=== PATIENT | male | born 1985 | race Caucasian/White ===

== ENCOUNTER 2016-10-08 07:23 | Inpatient (IN) | payer BC ==
[2016-10-08] VITALS (20 sets, daily range): BP systolic 115–178; BP diastolic 57–81; PULSE 59–87; RESP 14–36; Ht 188 cm; Wt 85.0 kg
[~2016-10-08] VITALS: Ht 188 cm; Wt 85.0 kg
[2016-10-08] MEDS ORDERED: MORP15TA92 PO (08:01)
[2016-10-08] MEDS ORDERED: GABA300C16 PO (08:01)
[2016-10-08] MEDS ORDERED: ACET-141 PO (08:02)
[2016-10-08] MEDS ORDERED: OXYC15TA PO (08:04)
[2016-10-08] MEDS ORDERED: FENTAnyl 50 MCG/ML VIAL ONE ×2 (08:08→15:35)
[2016-10-08] MEDS ORDERED: MIDAZOLAM 1 MG/ML 2 ML INJ ONE (08:08)
[2016-10-08] MEDS ORDERED: LIDOCAINE 2% (SDV) 5 ML INJ ONE (08:08)
[2016-10-08] MEDS ORDERED: SUCCINYLCHOLINE CHLORIDE 100 MG/5 ML SYG IV ONE (08:09)
[2016-10-08] MEDS ORDERED: PROPOFOL 20 ML ONE (08:09)
[2016-10-08] MEDS ORDERED: ROPIVACAINE 0.5 % 30 ML VIAL ONE (08:18)
[2016-10-08] MEDS ORDERED: POLYMYXIN/BACITRACIN 1L IRRIG ONE (09:19)
[2016-10-08] MEDS ORDERED: POVIDONE IODINE 10% 28.4 GM OINT ONE (09:19)
[2016-10-08] MEDS ORDERED: BUPIVACAINE 0.5% (SDV) 30 ML INJ ONE (09:19)
--- NOTE | 2016-10-08 09:19 | OPPN ---
Date/Time of Note Date/Time of Note DATE: 10/08/16 TIME: 09:17 Anesthesia Eval and Record Evaluation Age 31 Sex male NPO: 8 hrs Preoperative diagnosis L ankle fx Planned procedure L ankle OPA, ORIF Surgery & Anesthesia Issues No known issue Meds Anticoagulation: No Beta Ludivina within 24 hr: No Reason Beta Ludivina not given: Pt. not on B-Ludivina Reported Medications Oxycodone Hcl* (IR) (Oxycodone Hcl*) 15 Mg Tablet, 20 MG PO Q6 Y for PAIN, TAB 10/08/16 Acetaminophen* (Acetaminophen*) 500 MG Extra Strength Tablet, 500 MG PO Q6 Y for PAIN, TAB 10/08/16 Gabapentin* (Gabapentin*) 300 Mg Capsule, 300 MG PO Q8, #90 CAP 10/08/16 Morphine Sulfate* (Ms Contin*) 15 Mg Tablet.sa, 15 MG PO Q8 Y for PAIN, TAB.SA 10/08/16 Allergies Coded Allergies: No Known Allergy (Unverified , 10/08/16) Labs/Studies Reviewed by anesthesiologist Test: N/A Pre-procedure Exam Last vitals Vital Signs Date Time Temp Pulse Resp B/P Pulse Ox O2 Delivery O2 Flow Rate FiO2 10/08/16 09:03 98.0 59 16 132/81 97 Airway: Adequate mouth opening, Adequate thyromental dist Mallampati Score: Mallampati II Teeth: Normal Lung: Normal Heart: Normal ASA Physical Status ASA physical status: 2 (smoker) Planned Anesthetic General/MAC: ETT Nerve block: Sciatic (left), Other (L adductor canal block, saphenous nerve block) Planned Pain Management Single shot nerve block Pre-operative Attestations Prior to commencing anesthesia and surgery, the patient was re-evaluated, there was verification of: *The patient's identity *The results of appropriate recent lab work and preoperative vital signs *The above evaluation not changing prior to induction *Anesthetic plan, risk benefits, alternative and complications discussed with patient/family; questions answered; patient/family understands, accepts and wishes to proceed. SUE SELLERS MD Oct 08, 2016 09:19
--- NOTE | 2016-10-08 09:23 | RADRPT ---
PROCEDURE: XR Chest. CLINICAL INDICATION: Preoperative, ankle fracture TECHNIQUE: Single frontal view of the chest was obtained COMPARISON: None FINDINGS: The heart and mediastinum are within normal limits. The lungs are clear. There is no pleural effusion or pneumothorax. RPTAT: AA IMPRESSION: No acute disease. .Sy Barahona MD, MD Date Time Electronically viewed and signed by .Sy Barahona MD, on 10/08/2016 09:23 .S/
--- NOTE | 2016-10-08 10:20 | HPN ---
Date/Time of Note Date/Time of Note DATE: 10/08/16 TIME: 10:20 Interval H&P Admission Note Pt. seen H&P reviewed: No system changes KLAUS DUNNE MD Oct 08, 2016 10:20
[2016-10-08] MEDS ORDERED: hydrALAzine 20 MG INJ IV PRN (10:30)
[2016-10-08] MEDS ORDERED: LABETALOL HCL 20MG INJ IV PRN (10:30)
[2016-10-08] MEDS ORDERED: OXYCODONE/ACETAMINOPHEN (5/325) TAB PO PRN ×4 (10:30→16:00)
[2016-10-08] MEDS ORDERED: DIPHENHYDRAMINE 50 MG INJ IV PRN ×2 (10:30→16:00)
[2016-10-08] MEDS ORDERED: ONDANSETRON 4 MG INJ IV PRN ×3 (10:30→16:00)
[2016-10-08] MEDS ORDERED: ALBUTEROL 0.083% (NEB) 2.5 MG/3 ML AMP HHN PRN (10:30)
[2016-10-08] MEDS ORDERED: PROCHLORPERAZINE 10 MG INJ IV PRN (10:30)
[2016-10-08] MEDS ORDERED: HYDROmorphONE (0.2 MG/ML) 10ML SYG IV PRN ×2 (10:30)
[2016-10-08] MEDS ORDERED: FENTAnyl 50 MCG/ML VIAL IV PRN (10:30)
[2016-10-08] MEDS ORDERED: MEPERIDINE 25 MG INJ IV PRN (10:30)
[2016-10-08] MEDS ORDERED: IPRATROPIUM (NEB) 0.5 MG/2.5 ML AMP HHN PRN (10:30)
[2016-10-08] MEDS ORDERED: DIPHENHYDRAMINE 25 MG CAP PO PRN (10:30)
[2016-10-08] MEDS ORDERED: CEFAZOLIN 1 GM INJ IV SCH (10:30)
[2016-10-08] MEDS ORDERED: KETOROLAC 30 MG INJ IV ONE (10:30)
[2016-10-08] MEDS ORDERED: DEXAMETHASONE 4 MG/ML 1 ML INJ ONE (10:45)
[2016-10-08] MEDS ORDERED: ROCURONIUM 50 MG INJ ONE (10:45)
[2016-10-08] MEDS ORDERED: METOCLOPRAMIDE 10 MG INJ ONE (10:45)
[2016-10-08] MEDS ORDERED: CEFAZOLIN 1 GM INJ ONE ×2 (10:45→14:10)
[2016-10-08] MEDS ORDERED: ONDANSETRON 4 MG INJ ONE ×2 (10:45→15:05)
[2016-10-08] MEDS ORDERED: KETAMINE 500 MG INJ ONE (12:59)
[2016-10-08] MEDS ORDERED: HYDROmorphONE 2 MG/ML SYG ONE (13:11)
[2016-10-08] MEDS ORDERED: BACITRACIN/POLYMYXIN 28.35 GM OINT TOP ONE (15:17)
[2016-10-08] MEDS ORDERED: ACETAMINOPHEN 1000MG/100ML IV 100 ML ONE (15:32)
--- NOTE | 2016-10-08 15:40 | RADRPT ---
PROCEDURE: Intraoperative imaging of the left ankle with fluoroscopy. CLINICAL INDICATION: Left ankle pain. Intraoperative. TECHNIQUE: 18 images of the left ankle were obtained in the operating room with an image intensifi er. No radiologist was in attendance. All 156 seconds of fluoroscopy time was used. COMPARISON: No prior study is available for comparison. FINDINGS: Images demonstrate open reduction and internal fixation of fracture of the medial malleolus with ext ensive hardware. IMPRESSION: 1. Intraoperative imaging of the left ankle. RPTAT: QQ .Arnie Byers MD, MD Date Time Electronically viewed and signed by .Arnie Byers MD, on 10/08/2016 15:40 .R/
[2016-10-08] MEDS ORDERED: LORAZEPAM 2 MG INJ ONE (15:49)
--- NOTE | 2016-10-08 15:59 | OPPN ---
Date/Time of Note Date/Time of Note DATE: 10/08/16 TIME: 15:58 Post-Anesthesia Notes Post-Anesthesia Note Last documented vital signs Vital Signs Date Time Temp Pulse Resp B/P Pulse Ox O2 Delivery O2 Flow Rate FiO2 10/08/16 15:54 98.0 10/08/16 15:48 86 36 169/73 100 Mask 8.0 Activity: WNL Respiratory function: WNL Cardiovascular function: WNL Mental status: Baseline Pain reasonably controlled: Yes Hydration appropriate: Yes Nausea/Vomiting absent: Yes SUE SELLERS MD Oct 08, 2016 15:59
[2016-10-08] MEDS ORDERED: HYDROmorphONE 1 MG/ML SYG IV PRN ×2 (16:00)
[2016-10-08] MEDS ORDERED: ZOLPIDEM 5 MG TAB PO PRN (16:00)
[2016-10-08] MEDS ORDERED: NALOXONE (0.4 MG/ML) INJ IV PRN (16:00)
[2016-10-08] MEDS ORDERED: LORAZEPAM 2 MG INJ IV PRN (16:00)
[2016-10-08] MEDS ORDERED: HYDROmorphONE 0.2 MG/ML PCA IV SCH (16:00)
[2016-10-08] MEDS ORDERED: TRIMETHOBENZAMIDE 100 MG/ML VIAL IM PRN (16:00)
[2016-10-08] MEDS ORDERED: KETOROLAC 30 MG INJ IV PRN (16:00)
[2016-10-08] MEDS ORDERED: ACETAMINOPHEN 500 MG TAB PO PRN (16:00)
[2016-10-08] MEDS ORDERED: HYDROmorphONE 0.2 MG/ML PCA ONE (16:13)
[2016-10-08] MEDS: CEFAZOLIN 2 GM/50 ML (PMX) 50 ML IVPB SCH (17:57)
--- NOTE | 2016-10-08 18:45 | OPR ---
Date/Time of Note Date/Time of Note DATE: 10/08/16 TIME: 18:40 Operative Report Procedure Date: Oct 08, 2016 Preoperative Diagnosis Left ankle pilon fracture of the tibia and midshaft fibula Postoperative Diagnosis 1. Left ankle distal tibial pilon fracture and fibula fracture 2. left ankle medial talar dome osteochondral lesion measuring approximately 2 x 2 mm 3. left ankle loose body 4. left ankle acute rupture of the deltoid ligament 5. left ankle dislocation and disruption of the ankle syndesmosis Operation Performed 1.left ankle arthroscopy with extensive debridement 2.left ankle arthroscopy with loose body removal 3.left ankle arthroscopy with microfracture of medial talar dome osteochondral lesion 4.left ankle distal tibial pilon fracture open reduction internal fixation with open reduction internal fixation of midshaft fibula fracture 5.left ankle, repair of deltoid ligament rupture Surgeon: KLAUS DUNNE MD podiatry assistant: ANN MARIE DENNIS Anesthesia: general, other (Regional block anesthesia with popliteal and saphenous block) Anesthesiologist: SUE SELLERS MD Tourniquet Time: 140 min at 250 mmHg Estimated Blood Loss: 50 - 100 ml's Complications: None Pt Condition Post Procedure: stable Disposition: PACU KLAUS DUNNE MD Oct 08, 2016 18:45
[2016-10-08] MEDS ORDERED: oxyCODONE 5 MG TAB PO PRN (19:00)
--- NOTE | 2016-10-08 21:01 | CONS ---
DATE OF ADMISSION: 10/08/2016 DATE OF CONSULTATION: 10/08/2016 TYPE OF CONSULTATION: Pain management. REFERRING PHYSICIAN: Dr. Moody Monsivais History is taken from the patient's medical records as well as speaking to family members at the bed side. The patient is postop and still very lethargic. HISTORY OF PRESENT ILLNESS: This is a 31-year-old gentleman who sustained a left ankle pilon fractu re of the tibia and midshaft of the fibula secondary to falling, injuring himself 2 weeks ago playin g soccer. The patient was transported to [facility] via paramedics, was hospitalized there for approximately 1 week. At the time, he was worked up for any other serious acute injuries accor ding to family members. There were none found, and in questioning the patient's significant other, girlfriend states that there was no loss of consciousness, nausea, vomiting, dizziness, diplopia, di sorientation. She gave me a clear history that there were no other neurological problems or any oth er fractures that were noted during a thorough workup at [facility]. The patient was start ed off with combination of MS Contin 15 mg q.8 hours and oxycodone 20 mg q.6 hours as needed, and at [facility], he was receiving p.r.n. doses also of Dilaudid push and gabapentin. Apparentl y he was able to discontinue the use of the oxycodone as an outpatient when he was discharged from [facility] and was only taking morphine and gabapentin. A more thorough, detailed history o f his current pain level as well as the character of the pain, location, with or without radiation, will be done when patient is more awake. He is currently on a LOSS CONTROL REPRESENTATIVE. Dilaudid at 0.2 mg, lockout ashlie ry 10 minutes, was begun by Dr. Zeynep Toledo postoperatively, and he seems to be well controlled. Also has had 2 blocks intraoperatively in addition. MEDICATIONS: Please refer to reconciliation sheets. ALLERGIES: NO KNOWN DRUG ALLERGIES. MAJOR MEDICAL PROBLEMS IN THE PAST: According to family members, none. SOCIAL HISTORY: Was a heavy smoker, at one time a pack per day, stopped approximately 1 week ago an d currently uses nicotine patch. Social drinker occasionally on weekends. No other recreational dr ug use. FAMILY HISTORY: Noncontributory towards hospitalization according [facility] at [facility]. REVIEW OF SYSTEMS: Cannot be obtained. The patient is lethargic and waxes and wanes insofar as his mental status. PHYSICAL EXAMINATION: VITAL SIGNS: Blood pressure 151/63, pulse of 84 and regular, respirations of 18, temperature 98 deg carmelina, 98% saturation on 2 L FIO2. HEENT: He is normocephalic and atraumatic, anicteric, acyanotic on examination. CHEST: Bilateral clear breath sounds throughout both lung garzon. CORONARY: S1, S2 without S3, S4, murmur, gallop, rub. Normal rate, normal rhythm on examination. ABDOMEN: Grossly benign. NEUROLOGIC: He is postop, lethargic, difficult to ascertain a good neurological examination. The p atient cannot participate. There are no laboratories. ASSESSMENT AND PLAN: This gentleman is postoperative repair of left ankle pilon fracture of the tib ia and midshaft of the fibula. Please refer to the extensive postoperative procedures that were per formed by Dr. Monsivais. The patient is well sedated at this time and comfortable and waxes in and out of sleeping as I examine him, and he appears to be very comfortable. LOSS CONTROL REPRESENTATIVE is set at this time. The re is no past medical history of opioid tolerance in the past or abuse. He is, once again, currentl y stable. I will evaluate him early tomorrow morning 10/09/2016 and will work with him to try and t ransition him off the LOSS CONTROL REPRESENTATIVE and on p.o. medications once again. Dictated By: RAYSHAWN CLEVELAND MD, LP/GERMAN Conf#: [id number] DID#: [id number]
[2016-10-08] MEDS: GABAPENTIN 300 MG CAP PO SCH (21:21)
[2016-10-09] MEDS: CEFAZOLIN 2 GM/50 ML (PMX) 50 ML IVPB SCH ×3 (02:08→17:50)
[2016-10-09] MEDS ORDERED: HYDROmorphONE 0.2 MG/ML PCA IV SCH (04:30)
[2016-10-09] MEDS: HYDROmorphONE 0.2 MG/ML PCA IV SCH ×2 (04:48→11:21)
[2016-10-09] MEDS: CYCLOBENZAPRINE 10 MG TAB PO PRN ×2 (05:25→15:54)
[2016-10-09] MEDS: GABAPENTIN 300 MG CAP PO SCH ×3 (05:25→21:40)
[2016-10-09 06:31] VITALS: BP_SYST 125; BP_SYST 130; BP_DIAS 56; BP_DIAS 82; PULSE 78; PULSE 82; RESP 18
[2016-10-09] MEDS: morphine (ER) 15 MG TAB PO SCH ×3 (08:24→21:41)
[2016-10-09] MEDS ORDERED: KETOROLAC 30 MG INJ IV STA (08:37)
[2016-10-09 09:08] VITALS: BP 125/58; RESP 18
--- NOTE | 2016-10-09 10:10 | RADRPT ---
PROCEDURE: XR Left Tibia and Fibula. CLINICAL INDICATION: Left lower leg pain. Postop. TECHNIQUE: Two views. Frontal and lateral. COMPARISON: Intraoperative imaging dated 10/08/2016. FINDINGS: A small plate and screws are noted transfixing the oblique fracture in the upper to mid shaft of the left tibia. There has been open reduction and internal fixation of the ankle with plates and screw s. Bone detail is obscured by the overlying cast. Articular surfaces are intact. There is no lytic or blastic lesion. IMPRESSION: 1. Satisfactory postoperative appearance of the left tibia and fibula. RPTAT: QQ .Arnie Byers MD, MD Date Time Electronically viewed and signed by .Arnie Byers MD, on 10/09/2016 10:10 .R/
--- NOTE | 2016-10-09 10:11 | RADRPT ---
PROCEDURE: XR Left Ankle. CLINICAL INDICATION: Left ankle pain. Postop. TECHNIQUE: 2 views. Frontal and lateral. COMPARISON: None. FINDINGS: There has been open reduction and internal fixation with plates and screws transfixing the medial ma lleolus. A plate is in the distal fibular shaft laterally. Alignment is satisfactory. Bone detail is obscured by the overlying cast. Articular surfaces are intact. There is no lytic or blastic lesion. IMPRESSION: 1. Satisfactory postoperative appearance of the left ankle. RPTAT: QQ .Arnie Byers MD, MD Date Time Electronically viewed and signed by .Arnie Byers MD, MD on 10/09/2016 10:11 .R/
[2016-10-09 10:34] VITALS: BP 123/63; RESP 18
--- NOTE | 2016-10-09 11:46 | OPR ---
DATE OF OPERATION: 10/08/2016 PREOPERATIVE DIAGNOSIS: 1. Left ankle distal tibial pilon fracture and fibular shaft fracture. 2. Left ankle fracture, dislocation and disruption of the ankle syndesmosis. POSTOPERATIVE DIAGNOSES: 1. Left ankle distal tibial pilon fracture and fibular fracture. 2. Left ankle medial talar dome osteochondral lesion measuring approximately 2 x 2 mm. 3. Left ankle loose body removal of approximately 1.5 cm. 4. Left ankle acute rupture of the deltoid ligament. 5. Left ankle dislocation and disruption of the ankle syndesmosis. OPERATION PERFORMED: 1. Left ankle arthroscopy with extensive debridement. 2. Left ankle arthroscopy with loose body removal. 3. Left ankle arthroscopy with microfracture of the medial talar dome. 4. Left ankle distal tibial pilon fracture open reduction internal fixation of the distal tibial pilon fracture and fibular fracture. 5. Left ankle repair of the deltoid ligament rupture. SURGEON: Klaus Monsivais MD DIRECTOR GRAPHICS: WAGNER Flores ANESTHESIOLOGIST: Zeynep Toledo MD ANESTHESIA: General with regional block anesthesia with popliteal and saphenous block. TOURNIQUET TIME: 140 minutes at 250 mmHg. ESTIMATED BLOOD LOSS: 15 mL. COMPLICATIONS: None. INDICATIONS: The patient is a 31-year-old gentleman who broke is left ankle, sustaining a distal tibial pilon fracture with a Frances C fibular shaft fracture approximately 10 days ago while playing soccer. The patient was initially seen at [facility] and discharged after pain was controlled and seen in followup. Once his swelling had improved, patient was indicated for surgical management of his fracture. RISK NOTE: The patient was explained the risks and benefits of the surgery in the patient's alturas language including but not limited to infection, bleeding, loss of limb, loss of life, risk of anesthesia, risk of blood clot, risk of injury to nerves, blood vessels, ligaments or tendons, risk of arthritis development and risk of need for future surgery. The patient acknowledged these risks and signed the surgical consent form. PROCEDURE NOTE: The patient was met in the preoperative holding area, marked with the correct operative extremity confirmed with both patient and consent. The patient was then brought back in the operative theater, placed supine on operative table, given preoperative antibiotics and preoperative regional block anesthesia. The patient was then placed in the arthroscopic thigh guzman with all bony prominences well padded with a nonsterile tourniquet placed on the operative extremity. The patient was then prepped and draped in the normal sterile fashion. All parties in the room did a timeout and everyone agreed it was the correct patient, and extremity and procedure. Initial distraction was placed across the joint and the superficial peroneal nerve had been marked out previously, and using extreme caution to avoid any injury to the neurovascular structures, the anteromedial, anterolateral, and posterolateral portals were created in the standard fashion. The arthroscope was brought into the ankle and a 21-point exam was performed showing extensive hemorrhagic scar tissue and synovitis in the ankle with extensive scar tissue in both the medial, lateral, posterior and anterior gutters. Also noted was a 2 x 2 osteochondral lesion on the medial talar dome with approximately 1.5 cm of loose body that was found in the posterior medial aspect of the ankle, which was removed during the case. The syndesmosis was extensively debrided that revealed approximately 3 shaver widths showing completed disruption of the the syndesmosis. Also noted was the deep deltoid which was completely ruptured and visible in the medial gutter. After thorough debridement of the anterior medial , lateral, posterior and anterior gutters as well as removal of the loose bodies , the osteochondral lesion was debrided thoroughly, curetted to have a sharp rim surrounding the lesion. After the lesion was extensively debrided, the lesion was then microfractured in the typical fashion with both K wires and a microfracture pick. The flow was turned off showing that there were fat globules and stem cells that seeped out creating a crimson duvet cover of the osteochondral lesion. There was extensive posterior malleolar fracture with articular disruption seen and the fracture at this point was reduced with a probe and 2 K wires were placed across the fracture from anterior to posterior to hold the fracture in place under arthroscopic visualization. After this was done, the ankle was irrigated thoroughly with normal saline and the arthroscopes were removed. At this point, the thigh guzman was removed and the patient was well padded under both extremities and patient was then reprepped and draped, and all gloves and instruments were changed. Attention was then turned initially to the midshaft fibular fracture. An incision was made over the midshaft of the fibula. The incision was taken down to the fibula with care taken to avoid injury to the neurovascular structures. The fracture was identified and reduced and fixated with a 5-hole plate and held out to show that there was fibular length and alignment and rotation had been re-achieved. Once this was shown, the wound was irrigated thoroughly. Attention was then brought over to the medial aspect of the ankle and incision was taken down over the medial aspect of the ankle where there was shown to be an anterior medial colliculus fracture. The fracture was debrided thoroughly. Hematoma was removed and the fracture was reduced and fixed with an Arthrex Medial Hook Plate and under fluoroscopic visualization, this was shown to be well reduced in AP and lateral planes. Once the Hook Plate had been placed and the fracture was reduced and compressed, confirmation of fracture was reduction was show to be well achieved on the fluoroscopic images. At this time, attention was then brought over to the lateral aspect of the ankle and there was still syndesmotic widening that shown to be visible under ankle external rotation stress view and then using an approximately 3 cm incision over the distal aspect of the fibula, incision was made and taken down to the fibula and the 2-hole Arthrex plate was then placed at this spot and 2 TightRopes were placed while the syndesmosis was reduced using a large Frances clamp to achieve complete syndesmotic repair and tightening using the Arthrex TightRope system x2. The syndesmosis was shown to be well reduced on both AP oblique and lateral position with a diverging tight ropes that began approximately 1.5 cm from the ankle joint. At this point, attention was then brought to the ankle with evaluation of the posterior malleolar fracture. It was decided to use an anterior to posterior screw that was placed under fluoroscopic visualization. Incision was made over the anterior aspect of the ankle with a brittanie and spread technique to avoid any injury to the neurovascular structures. With a K wire first placed followed by a cannulated partially threaded screw with a washer to achieve compression of the posterior malleolar fracture and shown to be excellent reduction and return of the articular contour. The posterior malleolar fracture fragment which can be well reduced in both the AP oblique and lateral position. Finally, attention was then turned back over to the deltoid which was shown to be substantially ruptured acutely, both of the deep and superficial components. An Arthrex suture edward was placed over the medial malleolus and using 2-0 FiberWire [id number] fashion, the deltoid was acutely repaired back to the ankle and then using a running 2-0 Ethibond to finalize the repair after the suture edward had been placed, confirming both the deep and the superficial deltoid components had been had been reattached to the medial malleolus. All wounds were thoroughly irrigated and closed with initially 2-0 Vicryl, followed by 3-0 Monocryl followed by 3-0 nylon in a vertical mattress fashion. All wounds were dressed with Xeroform, antibiotic ointment, 4 x 4s, 5 ABDs were placed and the patient was placed in a well-padded short leg splint. Tourniquet had been brought down prior to this and hemostasis had been achieved prior to the wound closure. The wounds were irrigated thoroughly prior to closure as well. All sponge and needle counts were correct. MODIFIER 22 NOTE: Due to the substantial nature of the comminution and fracture , this case deserves a modifier 22 due to the significant complexity of the repair of this fracture requiring extensive length of time to repair this injury. The case required multiple ligamentous repairs as well as interarticular reduction of the tibial pilon fracture that required meticulous and precise repair, that required an extensive amount of time, expertise and preciseness and thus should be compensated accordingly. The patient was brought to the PACU in a stable condition and the pulses were 2 + with toes warm and well perfused. Dictated By: KLAUS AVALOS/GERMAN Conf#: [id number] DID#: [id number] DEANDRE
[2016-10-09] MEDS ORDERED: oxyCODONE 15 MG TAB PO PRN (12:30)
[2016-10-09] MEDS: ACETAMINOPHEN 500 MG TAB PO PRN (15:14)
[2016-10-09] MEDS ORDERED: HYDROmorphONE 1 MG/ML SYG IV PRN (16:30)
[2016-10-09] MEDS: KETOROLAC 30 MG INJ IV SCH ×2 (16:35→22:40)
--- NOTE | 2016-10-09 17:32 | OPPN ---
Date/Time of Note Date/Time of Note DATE: 10/09/16 TIME: 17:28 Anesthesia Follow up Anesthesia Follow up Last documented vital signs Vital Signs Date Time Temp Pulse Resp B/P Pulse Ox O2 Delivery O2 Flow Rate FiO2 10/09/16 09:08 98.3 70 18 125/58 100 10/09/16 06:31 2.0 10/08/16 23:00 Nasal Cannula Respiratory function: WNL Cardiovascular function: WNL Comments 31 yo M POD 1 s/p Left ankle arthroscopy with extensive debridement, loose body removal, microfracture of the medial talar dome, Left ankle distal tibial pilon fracture open reduction internal fixation of the distal tibial pilon fracture and fibular fracture, repair of the deltoid ligament rupture. s/p L popliteal sciatic and saphenous nerve blocks. Pt sensation and motor intact, +2 pulses. 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 He is tolerating po, sitting upright in bed , c/o severe pain episodes x 3 today. No complications from anesthesia. SUE SELLERS MD Oct 09, 2016 17:32
[2016-10-09] MEDS: RIVAROXABAN 10 MG TABLET PO SCH (17:50)
--- NOTE | 2016-10-09 19:16 | PN ---
Date/Time of Note Date/Time of Note DATE: 10/09/16 TIME: 19:16 Assessment/Plan Lines/Catheters IV Catheter Type (from Nrsg): Saline Lock Roman in Place (from Nrsg): No Assessment/Plan Assessment/Plan POD# 1 s/p 1.left ankle arthroscopy with extensive debridement 2.left ankle arthroscopy with loose body removal 3.left ankle arthroscopy with microfracture of medial talar dome osteochondral lesion 4.left ankle distal tibial pilon fracture open reduction internal fixation with open reduction internal fixation of midshaft fibula fracture 5.left ankle, repair of deltoid ligament rupture Plan 1. NWB to the LLE, with PT TO GT 2. Appreciate Pain Mgmt recs 3. Xarelto, SCDS, teds 4. Reg Diet 5. Likely DC home on Wednesday once pain is controlled ---- Todd Dunne MD Subjective 24 Hr Interval Summary Pain is better controlled now. Was in extensive pain during the day today, but improved now. No f/c/n/v Constitutional: improved Feeding: advancing diet Pain Control: moderate Exam/Review of Systems Vital Signs Vitals Vital Signs Date Time Temp Pulse Resp B/P Pulse Ox O2 Delivery O2 Flow Rate FiO2 10/09/16 09:08 98.3 70 18 125/58 100 10/09/16 06:31 2.0 10/08/16 23:00 Nasal Cannula Intake and Output 10/08/16 10/08/16 10/09/16 14:59 22:59 06:59 Intake Total 1820 ml 1350 ml Output Total 30 ml 800 ml Balance 1790 ml 550 ml Exam Constitutional: alert, oriented, well developed Musculoskeletal: other (LLE/ toes wiggle, silt to the m/d/p/fdws, cr brisk, toes wwp) KLAUS DUNNE MD Oct 09, 2016 19:16
[2016-10-09 19:57] VITALS: BP 122/70; PULSE 72; RESP 17
[2016-10-09] MEDS: ALPRAZOLAM 0.25 MG TAB PO SCH (20:37)
[2016-10-09] MEDS: HYDROmorphONE 1 MG/ML SYG IV PRN ×2 (20:37→23:29)
[2016-10-09] MEDS: CLOTRIMAZOLE 1% 30 GM CR TOP SCH (21:41)
[2016-10-10] MEDS: CEFAZOLIN 2 GM/50 ML (PMX) 50 ML IVPB SCH ×2 (02:58→10:00)
[2016-10-10] MEDS: HYDROmorphONE 1 MG/ML SYG IV PRN ×2 (03:00→08:00)
[2016-10-10] MEDS: ALPRAZOLAM 0.25 MG TAB PO SCH ×3 (03:03→20:46)
[2016-10-10] MEDS: GABAPENTIN 300 MG CAP PO SCH ×3 (05:05→21:45)
[2016-10-10] MEDS: KETOROLAC 30 MG INJ IV SCH (05:06)
[2016-10-10] MEDS: morphine (ER) 15 MG TAB PO SCH ×3 (05:06→21:46)
[2016-10-10 07:00] VITALS: BP 116/56; RESP 18
[2016-10-10] MEDS: CLOTRIMAZOLE 1% 30 GM CR TOP SCH ×2 (08:00→20:46)
[2016-10-10] MEDS ORDERED: CYCLOBENZAPRINE 10 MG TAB PO PRN (09:00)
--- NOTE | 2016-10-10 09:02 | PN ---
Date/Time of Note Date/Time of Note DATE: 10/10/16 TIME: 09:00 Assessment/Plan Lines/Catheters IV Catheter Type (from Nrsg): Peripheral IV Roman in Place (from Nrsg): No Assessment/Plan Assessment/Plan POD# 2 s/p 1.left ankle arthroscopy with extensive debridement 2.left ankle arthroscopy with loose body removal 3.left ankle arthroscopy with microfracture of medial talar dome osteochondral lesion 4.left ankle distal tibial pilon fracture open reduction internal fixation with open reduction internal fixation of midshaft fibula fracture 5.left ankle, repair of deltoid ligament rupture Plan 1. NWB to the LLE, with PT TO GT 2. Appreciate Pain Mgmt recs. No more TORADOL. I converted IV Dilaudid to PO Dilaudid today, Neurontin, MS Contin 3. Xarelto, SCDS, teds 4. Reg Diet 5. DC home once pain is controlled. Can go home today ---- E Loi SOL Subjective 24 Hr Interval Summary Pain is much better controlled. No f/c/n/v Feeding: advancing diet Pain Control: mild Exam/Review of Systems Vital Signs Vitals Vital Signs Date Time Temp Pulse Resp B/P Pulse Ox O2 Delivery O2 Flow Rate FiO2 10/10/16 07:00 98.9 58 18 116/56 95 10/09/16 19:57 Room Air 10/09/16 06:31 2.0 Intake and Output 10/09/16 10/09/16 10/10/16 15:00 23:00 07:00 Intake Total 50 ml 1850 ml 1550 ml Output Total 1700 ml 1300 ml Balance 50 ml 150 ml 250 ml Exam Constitutional: alert, oriented, well developed Musculoskeletal: other (LLE/ toes wiggle, silt to the m/d/p/fdws, cr brisk, toes wwp) KLAUS DUNNE MD Oct 10, 2016 09:02
[2016-10-10] MEDS ORDERED: CEFAZOLIN 2 GM/50 ML (PMX) 50 ML IVPB SCH (10:30)
[2016-10-10] MEDS: HYDROmorphONE 4 MG TAB PO PRN ×3 (10:34→20:45)
[2016-10-10] MEDS: MAGNESIUM HYDROXIDE 30ML CUP PO SCH (10:34)
[2016-10-10] MEDS: MINERAL OIL 30ML CUP PO SCH (10:34)
[2016-10-10] MEDS: SENNA/DOCUSATE NA (8.6MG/50MG) TAB PO SCH (10:36)
[2016-10-10] MEDS: ACETAMINOPHEN 500 MG TAB PO PRN ×2 (16:07→22:59)
[2016-10-10] MEDS: RIVAROXABAN 10 MG TABLET PO SCH (18:10)
[2016-10-10 19:58] VITALS: BP 130/60; PULSE 68; RESP 18
--- NOTE | 2016-10-10 21:02 | PN ---
DATE: 10/10/2016 SUBJECTIVE: Mr. Mcmanus is doing better today. Pain is controlled. Character and location of the p ain unchanged compared to my prior dictated note. Patient is on just p.r.n. doses of IV Dilaudid. 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 His gabapentin, morphine extended release have been resta rted again. OBJECTIVE VITAL SIGNS: Afebrile, vital signs stable. CHEST: Clear. CORONARY: S1, S2, without S3, S4, murmur, gallop, rub. NEUROLOGICAL: Oriented x3. Cranial nerves II through XII are grossly intact. Motor, sensory findi ngs grossly within normal limits. 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 Continue on just p.r.n. doses of his IV Dilaudid. He is scheduled to go home tomorrow, 10/10. We will restart his extended-release morphine and the dose he was taking as an outpatient of 15 mg q.8h. scheduled. I think he did well at home with just oxy codone, which he has at home. I have suggested just to take that for breakthrough pain when he goes home. When he is finished with that, to discontinue it and just take extra strength nonsteroidal a nti-inflammatory medication if that is okay with Dr. Monsivais. Dictated By: RAYSHAWN CLEVELAND MD, LP/GERMAN Conf#: [id number] DID#: [id number]
[2016-10-11] MEDS: HYDROmorphONE 4 MG TAB PO PRN ×3 (01:37→11:35)
[2016-10-11] MEDS: ALPRAZOLAM 0.25 MG TAB PO SCH ×2 (03:01→11:35)
[2016-10-11] MEDS: GABAPENTIN 300 MG CAP PO SCH (05:39)
[2016-10-11] MEDS: morphine (ER) 15 MG TAB PO SCH (05:40)
[2016-10-11 09:01] VITALS: BP 135/67; RESP 16
[2016-10-11] MEDS: CLOTRIMAZOLE 1% 30 GM CR TOP SCH (09:52)
[2016-10-11] MEDS: MINERAL OIL 30ML CUP PO SCH (09:52)
[2016-10-11] MEDS: MAGNESIUM HYDROXIDE 30ML CUP PO SCH (09:52)
[2016-10-11] MEDS: SENNA/DOCUSATE NA (8.6MG/50MG) TAB PO SCH (09:52)
--- NOTE | 2016-10-11 10:07 | DS ---
Date/Time of Note Date/Time of Note DATE: 10/11/16 TIME: 10:07 Discharge Summary Admission/Discharge Info Admit Date/Time Oct 10, 2016 at 12:08 Discharge Date/Time 10/11/16 Final Diagnosis left ankle medial talar dome osteochondral lesion left ankle distal tibial pilon fracture open reduction internal fixation with open reduction internal fixation of midshaft fibula fracture left ankle deltoid ligament rupture Patient Condition: Good Consults Pain Mgmt Procedures 1.left ankle arthroscopy with extensive debridement 2.left ankle arthroscopy with loose body removal 3.left ankle arthroscopy with microfracture of medial talar dome osteochondral lesion 4.left ankle distal tibial pilon fracture open reduction internal fixation with open reduction internal fixation of midshaft fibula fracture 5.left ankle, repair of deltoid ligament rupture Hospital Course Patient admitted s/p 1.left ankle arthroscopy with extensive debridement 2.left ankle arthroscopy with loose body removal 3.left ankle arthroscopy with microfracture of medial talar dome osteochondral lesion 4.left ankle distal tibial pilon fracture open reduction internal fixation with open reduction internal fixation of midshaft fibula fracture 5.left ankle, repair of deltoid ligament rupture Patient was admitted for pain control. Pain mgmt consulted. Pain improved on POD #3. NVI on discharge Home Meds Active Scripts Alprazolam* (Alprazolam*) 0.25 Mg Tablet, 0.25 MG PO Q8H Y for ANXIETY for 7 Days, #30 TAB Prov:KLAUS DUNNE MD 10/11/16 Hydromorphone Hcl (Dilaudid) 4 Mg Tab, 4 MG PO Q4H Y for SEVERE PAIN LEVEL 7-10 for 14 Days, #41 TAB Prov:KALUS DUNNE MD 10/11/16 Acetaminophen* (Acetaminophen*) 500 MG Extra Strength Tablet, 500 MG PO Q6 Y for PAIN for 30 Days, #90 TAB Prov:KLAUS DUNNE MD 10/11/16 Reported Medications Gabapentin* (Gabapentin*) 300 Mg Capsule, 300 MG PO Q8, #90 CAP 10/08/16 Morphine Sulfate* (Ms Contin*) 15 Mg Tablet.sa, 15 MG PO Q8 Y for PAIN, TAB.SA 10/08/16 Discontinued Reported Medications Oxycodone Hcl* (IR) (Oxycodone Hcl*) 15 Mg Tablet, 20 MG PO Q6 Y for PAIN, TAB 10/08/16 Follow-up Plan 1 week KLAUS DUNNE MD Oct 11, 2016 10:07
--- NOTE | 2016-10-11 10:07 | PN ---
Date/Time of Note Date/Time of Note DATE: 10/11/16 TIME: 10:07 Assessment/Plan Lines/Catheters IV Catheter Type (from Nrsg): Saline Lock Roman in Place (from Nrsg): No Assessment/Plan Assessment/Plan POD# 3 s/p 1.left ankle arthroscopy with extensive debridement 2.left ankle arthroscopy with loose body removal 3.left ankle arthroscopy with microfracture of medial talar dome osteochondral lesion 4.left ankle distal tibial pilon fracture open reduction internal fixation with open reduction internal fixation of midshaft fibula fracture 5.left ankle, repair of deltoid ligament rupture Plan 1. NWB to the LLE, with PT TO GT 2. Appreciate Pain Mgmt recs. No more TORADOL. PO Dilaudid today, Neurontin, MS Contin 3. Xarelto, SCDS, teds 4. Reg Diet 5. DC home today ---- E Loi SOL Subjective 24 Hr Interval Summary Doing much better. Pain is controlled. Feeding: advancing diet Pain Control: well controlled Exam/Review of Systems Vital Signs Vitals Vital Signs Date Time Temp Pulse Resp B/P Pulse Ox O2 Delivery O2 Flow Rate FiO2 10/11/16 09:01 98.0 51 16 135/67 96 10/10/16 19:58 Room Air 10/09/16 06:31 2.0 Exam Constitutional: alert, oriented, well developed Musculoskeletal: other (LLE/ toes wiggle, silt to the m/d/p/fdws, cr brisk, toes wwp) KLAUS DUNNE MD Oct 11, 2016 10:07
[2016-10-11] MEDS ORDERED: HYDR4TAB PO (10:09)
[2016-10-11] MEDS ORDERED: ALPR0.254 PO (10:09)
[2016-10-11] MEDS ORDERED: ACET-141 PO (10:09)
--- NOTE | 2016-10-11 10:10 | PDOCDIS ---
Discharge Instructions CONDITION Patient Condition: Good HOME CARE INSTRUCTIONS: Diet Instructions: RegularSpecial Diet: REGULAR ACTIVITY: Activity Restrictions: Do not Drive Do not operate Machinery Do not operate Power Tool Keep Limb Elevated No Weight Bearing KLAUS DUNNE MD Oct 11, 2016 10:10
== END 2016-10-11 13:00 | disposition home or self-care (01) | DRG 494 ==
LOC: SDS 07:23 → REC 10:25 → SDS 10:25 → MS1 18:10 → OBSVTOIN 10-10 12:08
PROVIDERS: ADMIT Orthopaedic Surgery; ATTEND Orthopaedic Surgery
PROC: 0YQ Anatomical Regions, Lower Extremities, Repair (ICD-10-PCS; 2016-10-08)
PROC: 0QSK04Z Reposition Left Fibula with Internal Fixation Device, Open Approach (ICD-10-PCS; 2016-10-08)
PROC: 0QSH04Z Reposition Left Tibia with Internal Fixation Device, Open Approach (ICD-10-PCS; principal; 2016-10-08 09:30)
DX: S82.492A Other fracture of shaft of left fibula, initial encounter for closed fracture (principal); M24.072 Loose body in left ankle; S82.872A Displaced pilon fracture of left tibia, initial encounter for closed fracture; S82.892A Other fracture of left lower leg, initial encounter for closed fracture; Y93.66 Activity, soccer; Y92.39 Other specified sports and athletic area as the place of occurrence of the external cause; S93.422A Sprain of deltoid ligament of left ankle, initial encounter; S93.492A Sprain of other ligament of left ankle, initial encounter; M65.9 Synovitis and tenosynovitis, unspecified
CPT/HCPCS: 71010; 73590; 73610; 82306; 97116; 97530; 99217; G0378; J0131; J0330; J0360; J0690; J1100; J1170; J1885; J2060; J2250; J2405; J2765; J2795; J3010